=== PATIENT | female | born 1965 | race Caucasian/White ===

== ENCOUNTER 2024-07-11 17:33 | Observation (INO) ==
[2024-07-11 17:58] VITALS: BMI 14.5
--- NOTE | 2024-07-11 18:27 | EKG ---
Test Reason : Dyspnea Blood Pressure : */* mmHG Vent. Rate : 93 BPM Atrial Rate : 93 BPM P-R Int : 110 ms QRS Dur : 72 ms QT Int : 344 ms P-R-T Axes : 83 67 56 degrees QTc Int : 427 ms Sinus rhythm with short CA with occasional premature ventricular complexes Cannot rule out Anterior infarct , age undetermined Abnormal ECG No previous ECGs available Confirmed by Aiden Antoine MD ([id number]) on 07/12/2024 7:31:23 AM Referred By: Confirmed By: Aiden Antoine MD
[2024-07-11 18:40] LABS: BASOPHILS # (AUTO) 0.1 X10^3/uL (0.0-0.1); BASOPHILS % (AUTO) 0.5 % (0.2-1.0); EOSINOPHILS # (AUTO) 0.1 x10^3/uL (0.0-0.2); EOSINOPHILS % (AUTO) 0.5 % (0.9-2.9); HEMATOCRIT 39.2 % (36.0-47.0); HEMOGLOBIN 12.7 g/dL (12.0-16.0); INR 1.08 (0.8-1.3); LYMPHOCYTES # (AUTO) 1.1 X10^3/uL (1.3-2.9); LYMPHOCYTES % (AUTO) 7.3 % (21.0-51.0); MEAN CORPUSCULAR HEMOGLOBIN 27.1 pg (27.0-34.0); MEAN CORPUSCULAR HGB CONC 32.4 g/dL (33.0-35.0); MEAN CORPUSCULAR VOLUME 83.6 fL (80.0-100.0); MEAN PLATELET VOLUME 9.3 fL (7.4-11.0); MONOCYTES # (AUTO) 0.9 x10^3/uL (0.3-0.8); MONOCYTES % (AUTO) 6.1 % (0.0-13.0); NEUTROPHILS # (AUTO) 12.5 x10^3/uL (2.2-4.8); NEUTROPHILS % (AUTO) 85.6 % (42.0-75.0); PLATELET COUNT 217 X10^3/uL (150.0-450.0); RED BLOOD COUNT 4.69 X10^6/uL (3.5-5.4); RED CELL DISTRIBUTION WIDTH 14.4 % (11.6-16.5); WHITE BLOOD COUNT 14.6 X10^3/uL (3.6-10.0)
[2024-07-11 18:47] LABS: ALANINE AMINOTRANSFERASE 15 Units/L (12-78); ALKALINE PHOSPHATASE 146 Units/L (46-116); ASPARTATE AMINO TRANSFERASE 26 Units/L (15-37); BLOOD UREA NITROGEN 12 mg/dL (7-18); CALCIUM 9.1 mg/dL (8.5-10.1); CARBON DIOXIDE 31.8 mmol/L (21-32); CHLORIDE 95 mmol/L (98-107); COR CA(FOR HYPOALB) 9.9 mg/dL (8.5-10.1); COR NA(FOR HYPERGLY) 134 mmol/L (136-145); CREATINE KINASE 59 Units/L (26-192); GLUCOSE 122 mg/dL (65-99); MAGNESIUM 1.9 mg/dL (2.0-2.9); POTASSIUM 3.8 mmol/L (3.5-5.1); SODIUM 133 mmol/L (136-145); TOTAL PROTEIN 7.8 g/dL (6.4-8.2); eGFR NON BLACK RACES > 60 (>60)
--- NOTE | 2024-07-11 19:33 | CT ---
EXAM:CTA, CHESTHISTORY:SOB / CHEST PAIN ;COMPARISON:Chest radiograph from July 11, [address] chest from April 05, 2024TECHNIQUE:Axial CT images of the chest were obtained after the administration of 75 mL Omnipaque 350 IV contrast utilizing a CTA protocol. 3D MIPS were performed and reviewed for further evaluation.Radiation dose: 85.63 mGy-cm total DLPFINDINGS:No significant pericardial effusion.Right chest port in place.No mediastinal or hilar lymphadenopathy.Aorta is normal in caliber without dissection.Pulmonary arteries are normal in caliber without filling defects to suggest a pulmonary embolus.Airways are widely patent.Thyroid appears normal.No pleural effusion.No acute focal infiltrate.Scarring in the left lung base; as seen on the previous exam.Moderate centrilobular emphysema.Mild diffuse bronchial wall thickening.Small centrilobular nodules visualized in the medial segment of the middle lobe, lateral segment of the right lower lobe and in the anterior segment of the left upper lobe.No pneumothorax.No concerning lung parenchymal lesion identified.Small calcified gallstones in the dependent portion of the gallbladder with no overt imaging findings of acute cholecystitis.Otherwise, the imaged portion of the upper abdomen is grossly unremarkable.No acute osseous abnormality.IMPRESSION:1. No acute intrathoracic abnormality, specifically, no pulmonary embolus identified.2. Small centrilobular nodules visualized in the medial segment of the middle lobe, lateral segment of the right lower lobe and in the anterior segment of the left upper lobe. Findings could represent an atypical infectious process such as MAC.3. Moderate centrilobular emphysema.THIS IS AN ELECTRONICALLY VERIFIED FINAL REPORT07/11/2024 7:30 PM - Electronically signed by Gareth Sheikh MD
--- NOTE | 2024-07-11 20:26 | DR.GENAD ---
HPI Time Seen Time Seen by Provider: 07/11/24 18:00 PCP Primary Care Physician: Bennett Maza HPI Comment HPI Comment: According to pt she was well before 2 days ago stared with fever cough that has become productive and greenish yellow became concerned . Furthermore noticed increased shortness of breath ,but has no orthopnea PND or swelling around her ankles. Does have hx of COPD and stage 4 lung cancer. Does not use oxygen at home has also noticed malodorous urine .Appetite has been poor Complaint/Symptoms Chief Complaint Doctors Comments: shortness of breath foul smelling urine Chief Complaint:: Pt states for the last week she's been coughing up green mucus. Friday pt started having trouble catching her breath and her temperature was 100.3. Pt c/o foul-smelling urine and left flank pain that is moderate to severe. Denies n/v, diarrhea. Pt admits COPD and Stage 4 Lung CA. Self Treatment fo Chief Complaint: Tylenol COVID-19 Coronavirus risk:travel/contact w/high risk person: No Has patient experienced Coronavirus symptoms: Yes Coronavirus symptoms experienced: Coughing and Shortness of Breath Nurses notes reviewed Nurses Notes Review: Yes Source History Provided: Patient Mode of Arrival Mode of Arrival: Ambulatory Timing Onset of Chief Complaint: 07/04/24 Came on: Gradually Duration Duration: Since Onset Duration: Days Severity Severity: Moderate PMH PMH Past Medical History: Yes Past Medical History: Hypothyroidism and Cancer Past Medical History Comment: Lung CA Past Surgical History: Yes Surgical History: Hysterectomy and Other Past Surgical History Comment: Cataracts Family History History of Family Medical Conditions: Yes Family Medical History: Hypertension Social History How many years tobacco product used: 30 Alcohol Use: None Do you use any recreational Drugs:: No Lives With: Alone Lives Where: Home Travel Risk Coronavirus risk:travel/contact w/high risk person: No Has patient experienced Coronavirus symptoms: Yes Coronavirus symptoms experienced: Coughing and Shortness of Breath Infectious screening Have you traveled outside the country in the last 6 months?: No Isolation: Standard ROS Review of Systems Constitutional: Chills and Fatigue Eyes: No Symptoms Reported ENTM: No Symptoms Reported Respiratoy: Productive Cough and Short of Breath Cardiovascular: No Symptoms Reported Gastrointestinal/Abdominal: No Symptoms Reported Genitourinary: No Symptoms Reported Neurological: No Symptoms Reported Musculoskeletal: No Symptoms Reported Integumentary: No Symptoms Reported Hematologic/Lymphatic: No Symptoms Reported PE Vital Signs Vitals: Vital Signs Temperature 98.6 F Pulse Rate 94 Pulse Rate 98 Pulse Rate 99 Pulse Rate 99 Pulse Rate 97 Pulse Rate 93 Pulse Rate 92 Pulse Rate 90 Pulse Rate 93 Pulse Rate 92 Pulse Rate 84 Pulse Rate 98 Pulse Rate 91 Pulse Rate 103 Pulse Rate 87 Pulse Rate 83 Pulse Rate 89 Pulse Rate 105 Pulse Rate 87 Pulse Rate 87 Pulse Rate 93 Pulse Rate 98 Pulse Rate 112 Pulse Rate 109 Respiratory Rate 30 Respiratory Rate 23 Respiratory Rate 17 Respiratory Rate 34 Respiratory Rate 19 Respiratory Rate 19 Respiratory Rate 24 Respiratory Rate 20 Respiratory Rate 20 Respiratory Rate 17 Respiratory Rate 16 Respiratory Rate 20 Respiratory Rate 20 Respiratory Rate 21 Respiratory Rate 20 Respiratory Rate 19 Respiratory Rate 24 Blood Pressure 115/63 Blood Pressure 113/57 Blood Pressure 121/64 Blood Pressure 107/64 Blood Pressure 116/66 Blood Pressure 112/63 Blood Pressure 119/67 Blood Pressure 127/64 O2 Sat by Pulse Oximetry 97 O2 Sat by Pulse Oximetry 97 O2 Sat by Pulse Oximetry 98 O2 Sat by Pulse Oximetry 99 O2 Sat by Pulse Oximetry 97 O2 Sat by Pulse Oximetry 99 O2 Sat by Pulse Oximetry 98 O2 Sat by Pulse Oximetry 99 O2 Sat by Pulse Oximetry 98 O2 Sat by Pulse Oximetry 98 O2 Sat by Pulse Oximetry 100 O2 Sat by Pulse Oximetry 98 O2 Sat by Pulse Oximetry 100 O2 Sat by Pulse Oximetry 100 O2 Sat by Pulse Oximetry 100 O2 Sat by Pulse Oximetry 100 O2 Sat by Pulse Oximetry 100 O2 Sat by Pulse Oximetry 85 O2 Sat by Pulse Oximetry 100 O2 Sat by Pulse Oximetry 99 O2 Sat by Pulse Oximetry 98 O2 Sat by Pulse Oximetry 99 O2 Sat by Pulse Oximetry 86 O2 Sat by Pulse Oximetry 84 General Limitations: No Limitations General Appearance: Alert and In Distress Head Head Exam: Normal Inspection, Atraumatic and Normocephalic Eyes Eye exam: Normal Appearance, PERRL and EOMI ENT ENT Exam: Mucous Membranes Dry Throat Exam: Normal Inspection Neck Neck Exam: Normal Inspection Chest Chest Inspection: Normal Inspection and Symmetric Chest Wall Rise Respiratory Respiratory Exam: Prolonged Expiratory Phase Respiratory Exam: Bilateral: Crackles Cardiovascular Cardiovascular Exam: +S1 and +S2 Abdominal Exam Abdominal Exam: Normal Bowel Sounds and Soft Extremities Extremities Exam: Normal Inspection Neurologic Neurological Exam: Alert Skin Skin Exam: Normal Color MDM Additional Information Findings: dehydration Differential Diagnosis Differential Diagnosis: copd acute exacerbation ,hx of stage 4 ,? pulmonary embolism ,malodorous ur COURSE Treatment Treatment: iv fluids ,labs ,steroid ,oxygen resp panel ROR Labs Reviewed Laboratory Results Reviewed?: Yes 07/11/24 18:22 07/11/24 18:22 Laboratory: WBC 14.6 X10^3/uL (3.6-10.0) H 07/11/24 18:22 RBC 4.69 X10^6/uL (3.5-5.4) 07/11/24 18:22 Hgb 12.7 g/dL (12.0-16.0) 07/11/24 18:22 Hct 39.2 % (36.0-47.0) 07/11/24 18:22 MCV 83.6 fL (80.0-100.0) 07/11/24 18:22 MCH 27.1 pg (27.0-34.0) 07/11/24 18:22 MCHC 32.4 g/dL (33.0-35.0) L 07/11/24 18:22 RDW 14.4 % (11.6-16.5) 07/11/24 18:22 Plt Count 217 X10^3/uL (150.0-450.0) 07/11/24 18:22 MPV 9.3 fL (7.4-11.0) 07/11/24 18:22 Neut % (Auto) 85.6 % (42.0-75.0) H 07/11/24 18:22 Lymph % (Auto) 7.3 % (21.0-51.0) L 07/11/24 18:22 [place] % (Auto) 6.1 % (0.0-13.0) 07/11/24 18:22 Eos % (Auto) 0.5 % (0.9-2.9) L 07/11/24 18:22 Baso % (Auto) 0.5 % (0.2-1.0) 07/11/24 18:22 Neut # (Auto) 12.5 x10^3/uL (2.2-4.8) H 07/11/24 18:22 Lymph # (Auto) 1.1 X10^3/uL (1.3-2.9) L 07/11/24 18:22 [place] # (Auto) 0.9 x10^3/uL (0.3-0.8) H 07/11/24 18:22 Eos # (Auto) 0.1 x10^3/uL (0.0-0.2) 07/11/24 18:22 Baso # (Auto) 0.1 X10^3/uL (0.0-0.1) 07/11/24 18:22 Absolute Nucleated RBC 0.0 /100WBC 07/11/24 18:22 PT 13.8 SECONDS (11.8-14.3) 07/11/24 18:22 INR Target Range - 07/11/24 18:22 INR 1.08 (0.8-1.3) 07/11/24 18:22 APTT 54.8 SECONDS (22.9-36.5) H 07/11/24 18:22 PTT Comment - 07/11/24 18:22 Sodium 133 mmol/L (136-145) L 07/11/24 18:22 Corrected Sodium 134 mmol/L (136-145) L 07/11/24 18:22 Potassium 3.8 mmol/L (3.5-5.1) 07/11/24 18:22 Chloride 95 mmol/L (98-107) L 07/11/24 18:22 Carbon Dioxide 31.8 mmol/L (21-32) 07/11/24 18:22 BUN 12 mg/dL (7-18) 07/11/24 18:22 Creatinine 0.70 mg/dL (0.55-1.02) 07/11/24 18:22 Est GFR (MDRD) Af Amer > 60 (>60) 07/11/24 18:22 Est GFR (MDRD) Non-Af > 60 (>60) 07/11/24 18:22 Glucose 122 mg/dL (65-99) H 07/11/24 18:22 Calcium 9.1 mg/dL (8.5-10.1) 07/11/24 18:22 Corrected Calcium 9.9 mg/dL (8.5-10.1) 07/11/24 18:22 Magnesium 1.9 mg/dL (2.0-2.9) L 07/11/24 18:22 Total Bilirubin 0.30 mg/dL (0.2-1.0) 07/11/24 18:22 AST 26 Units/L (15-37) 07/11/24 18:22 ALT 15 Units/L (12-78) 07/11/24 18:22 Alkaline Phosphatase 146 Units/L (46-116) H 07/11/24 18:22 Creatine Kinase 59 Units/L (26-192) 07/11/24 18:22 Troponin I High Sens 6.2 ng/L (4.0-60.0) 07/11/24 18:22 B-Natriuretic Peptide 158 pg/mL (0-79) H 07/11/24 18:22 Total Protein 7.8 g/dL (6.4-8.2) 07/11/24 18:22 Albumin 3.0 g/dL (3.4-5.0) L 07/11/24 18:22 Globulin 4.8 g/dL (2.5-4.5) H 07/11/24 18:22 Albumin/Globulin Ratio 0.6 Ratio (1.1-2.1) L 07/11/24 18:22 SARS-CoV-2 (PCR) Negative (NEGATIVE) 07/11/24 18:00 Influenza Type A (PCR) Negative (NEGATIVE) 07/11/24 18:00 Influenza Type B (PCR) Negative (NEGATIVE) 07/11/24 18:00 RSV (PCR) Negative (NEGATIVE) 07/11/24 18:00 Opioid Opioid Risk Tool Age ([place] box if 16-45): No History of Preadolescent Sexual Abuse: No Total: 0 Total Score Risk Category: Low Risk Copyright: Alvarado predicting aberrant behaviors Discharge Plan Diagnosis Discharge Problem: Acute exacerbation of chronic obstructive pulmonary disease, Acute bacterial bronchitis, Hypoxia Discharge Plan Patient Disposition: 01 HOME, SELF-CARE Condition: Stable Prescriptions: No Action albuterol sulfate 2.5 mg /3 mL (0.083 %) solution for nebulization 235 mg continuous nebulization Q4H PRN Patient Comments: [NO ORIGINAL SIG] potassium chloride 10 mEq tablet extended release 10 meq PO QDAY levothyroxine 50 mcg tablet 50 mcg PO QDAY furosemide 20 mg tablet 20 mg PO QDAY albuterol sulfate 90 mcg/actuation HFA aerosol inhaler 2 inh inhalation Q4H PRN levocetirizine 5 mg tablet 5 mg PO QDAY oxycodone 20 mg tablet 20 mg PO QID PRN Breztri Aerosphere 160-9-4.8 mcg/actuation HFA aerosol inhaler 2 inh inhalation BID Health Concerns: Post Hospitalization: new medications and changes needed to prevent readmission or further decline. Pt educated and given instructions on all concerns. Plan of Treatment: Continue with present treatment and follow up plan. Pt is to keep follow up appointment as instructed and take medications as ordered. Orders to Discharge Patient Discharge Orders: Transfer (Routine); Ordered 07/11/24 Ordered By: Royal Santana Follow ups/Referrals Follow ups/Referrals: NFD,None [Primary Care Provider] - 3 days Instructions Stand Alone Forms: Find Help Web Site, Post Hospital Follow Up Care ADDITIONAL NOTES Additional Notes Additional Notes: her oxygen dropped to lower 80`s with ambulation . discussed case with Dr Flores agreed to have patient admitted for hypoxia with COPD exacerbation .May need home oxygen scheduled prior to discharge
[2024-07-11] MEDS: NS 500 ML IV 500 ML IV ONE (20:28)
[2024-07-11] MEDS: SOLU-Medrol 125 MG VIAL IVP ONE (20:30)
[2024-07-11] MEDS: LEVAQUIN TAB 750 MG PO ONE (20:51)
--- NOTE | 2024-07-11 20:53 | RAD ---
PROCEDURE: Chest X-ray 1 View.HISTORY: SOB; .TECHNIQUE: AP view.COMPARISON: None .TECHNICAL QUALITY: Satisfactory.FINDINGS:Micro cardia related to emphysema.Right internal jugular Port-A-Cath in place.Mediastinum and hilar regions show no masses or lymphadenopathy.Normal central vascularity.No pulmonary consolidation, masses, pleural fluid, or pneumothorax. Hyperexpansion of the lungs related to emphysema. Linear scar versus discoid atelectasis right base.No acute bony abnormality.IMPRESSION:1. COPD.2. Scar versus atelectasis right base.THIS IS AN ELECTRONICALLY VERIFIED FINAL REPORT07/11/2024 8:50 PM - Electronically signed by Perez Fleming MD
[2024-07-11] MEDS ORDERED: PROVENTIL NEB TX 0.083% 2.5MG/ 3ML NEB PRN (23:06)
[2024-07-11] MEDS ORDERED: PATIENT'S HOME MEDICATION (Oxycodone 20 mg tablet) PO PRN (23:06)
[2024-07-11] MEDS ORDERED: MILK OF MAGNESIA PO PRN (23:46)
[2024-07-11] MEDS: PROVENTIL NEB TX 0.083% 2.5MG/ 3ML NEB SCH (23:47)
[2024-07-12 00:05] LABS: ABG BASE EXCESS 4.1 mmol/L (-2.0-2.0); ABG HCO3 28.5 mmol/L (22-26)
[2024-07-12 00:06] LABS: ABG ALLEN TEST POS
[2024-07-12] MEDS: TYLENOL 325 MG TAB PO PRN (00:52)
[2024-07-12] MEDS: SOLU-Medrol 40 MG VIAL IVP SCH (05:02)
[2024-07-12] MEDS: ROXICODONE TAB 5 MG PO PRN (05:06)
[2024-07-12 05:38] LABS: BASOPHILS % (AUTO) 0.1 % (0.2-1.0); HEMATOCRIT 43.2 % (36.0-47.0); HEMOGLOBIN 13.8 g/dL (12.0-16.0); LYMPHOCYTES # (AUTO) 0.6 X10^3/uL (1.3-2.9); MEAN CORPUSCULAR VOLUME 84.4 fL (80.0-100.0); MEAN PLATELET VOLUME 9.2 fL (7.4-11.0); MONOCYTES # (AUTO) 0.1 x10^3/uL (0.3-0.8); NEUTROPHILS # (AUTO) 10.7 x10^3/uL (2.2-4.8); NEUTROPHILS % (AUTO) 93.9 % (42.0-75.0); PLATELET COUNT 241 X10^3/uL (150.0-450.0); RED BLOOD COUNT 5.12 X10^6/uL (3.5-5.4); RED CELL DISTRIBUTION WIDTH 14.7 % (11.6-16.5); WHITE BLOOD COUNT 11.4 X10^3/uL (3.6-10.0)
[2024-07-12 05:42] LABS: ALANINE AMINOTRANSFERASE 15 Units/L (12-78); ALKALINE PHOSPHATASE 153 Units/L (46-116); ASPARTATE AMINO TRANSFERASE 23 Units/L (15-37); BLOOD UREA NITROGEN 9 mg/dL (7-18); CALCIUM 9.3 mg/dL (8.5-10.1); CARBON DIOXIDE 30.4 mmol/L (21-32); CHLORIDE 95 mmol/L (98-107); COR CA(FOR HYPOALB) 10.1 mg/dL (8.5-10.1); COR NA(FOR HYPERGLY) 134 mmol/L (136-145); CREATININE 0.54 mg/dL (0.55-1.02); GLUCOSE 113 mg/dL (65-99); POTASSIUM 4.2 mmol/L (3.5-5.1); SODIUM 134 mmol/L (136-145); TOTAL PROTEIN 8.2 g/dL (6.4-8.2); eGFR NON BLACK RACES > 60 (>60)
[2024-07-12 06:03] LABS: BAND NEUTROPHILS % 1 % (0-10); PLATELET MORPHOLOGY COMMENT NORMAL (NORMAL)
[2024-07-12] MEDS: PROVENTIL NEB TX 0.083% 2.5MG/ 3ML ONE (07:36)
[2024-07-12] MEDS: SYNTHROID 50 mcg TAB PO SCH (08:39)
[2024-07-12] MEDS ORDERED: PATIENT'S HOME MEDICATION (Budesonide-Glycopyr-Formoterol [Breztri Aerosphere] 160-9-4.8 m IN SCH (09:00)
[2024-07-12] MEDS: PULMICORT NEB TX 0.5 MG NEB SCH (09:06)
--- NOTE | 2024-07-12 14:20 | CT ---
EXAM: THORACIC SPINE W/O CON HISTORY: BACK PAIN ; COMPARISON: Chest CT 07/11/2024 TECHNIQUE: Multiple CT axial images of the thoracicspine were obtained without IV contrast. Coronal and sagittal images were reconstructed. Dose reduction techniques included Automated Exposure Control (AEC) and a djustment of mA and kV. FINDINGS: There is no significant scoliosis. Moderate senescent kyphosis is present. Twelve ribbed thoracic t ype vertebra are present. There are no cervical ribs. The bones are diffusely demineralized. The heights of the vertebral bodies are normal. No subluxation. Left posterior 10th rib fracture is old. No acute fracture. Very mild degenerative spondylitic changes are present in the spine. Intracanalicular soft tissue delineation is fair. There is no obvious disc herniation. Normal opacity is present in the left lung; refer to the chest CT report from yesterday. IMPRESSION: 1. No acute findings 2. Mild degenerative changes THIS IS AN ELECTRONICALLY VERIFIED FINAL REPORT 07/12/2024 2:16 PM - Electronically signed by Lee Carlisle MD
--- NOTE | 2024-07-12 14:25 | RAD ---
EXAM: ACUTE ABDOMEN SERI ES HISTORY: Left flank back pain; COMPARISON: No relevant prior studies available. TECHNIQUE: AP supine and upright abdominal radiographs with chest radiography, 3 images. FINDINGS: Gas and stool in non distended colon. Gas in scattered loops of non-distended small bowel. No gross free air. No abnormal calcifications. Lungs are clear of focal airspace disease. Diaphragmatic flattening noted. Right-sided implanted po rt with tip in satisfactory position No cardiomegaly. No pneumothorax. No pleural effusion. No acute osseous abnormality. IMPRESSION: No acute intra-abdominal or intrathoracic abnormality detected. Right port in satisfactory position Stigmata of COPD THIS IS AN ELECTRONICALLY VERIFIED FINAL REPORT 07/12/2024 2:22 PM - Electronically signed by Perez Chamorro MD
--- NOTE | 2024-07-12 18:04 | DR.H&P ---
H&P History & Physical for Day of: H&P Date: 07/11/24 Chief Complaint Chief Complaint: CCC, WEAKNESS History of Present Illness History of Present Illness: PT IS 59 WF, ER ADMISSION WITH CO DIFFUSE WEAKNESS, CCC AND INCREASED PRODUCTIVE SPUTUM. PT HAS STAGE IV LUNG CANCER, CURRENTLY ON CHEMO. PT DENIES ANY GI SYMPTOMS. PT ADMITTED FOR EVALUATION AND TREATMENT OF ACUTE ILLNESS. Past Medical History Past Medical History: Hypothyroidism and Cancer Past Surgical History Surgical History: Hysterectomy Family History Family Medical History: Hypertension Social History Does patient currently use any type of tobacco product: Yes Type of Tobacco Use: Cigarettes How many years tobacco product used: 30 Does any household member use tobacco: No Alcohol Use: None Drug Use: None Medications Home Medications: Home Medications Medication Instructions Recorded Confirmed Type albuterol sulfate 2.5 mg/3 mL 235 mg continuous nebulization Q4H 07/11/24 07/11/24 History (0.083 %) solution for nebulization PRN albuterol sulfate 90 mcg/actuation 2 inh inhalation Q4H PRN 07/11/24 07/11/24 History aerosol inhaler budesonide 160 mcg-glycopyr 9 2 inh inhalation BID 07/11/24 07/11/24 History mcg-formot 4.8 mcg/actuation HFA inhaler (Breztri Aerosphere) furosemide 20 mg tablet 20 mg PO QDAY 07/11/24 07/11/24 History levocetirizine 5 mg tablet 5 mg PO QDAY 07/11/24 07/11/24 History levothyroxine 50 mcg tablet 50 mcg PO QDAY 07/11/24 07/11/24 History oxycodone 20 mg tablet 20 mg PO QID PRN 07/11/24 07/11/24 History potassium chloride 10 mEq 10 meq PO QDAY 07/11/24 07/11/24 History tablet,extended release Allergies Allergies Allergy/AdvReac Type Severity Reaction Status Date / Time No Known Allergies Allergy Verified 07/11/24 19:24 Labs 07/12/24 05:16 07/12/24 05:16 Labs: 07/12/24 01:53 Sputum - Expectorated Sputum - Final Laboratory WBC 11.4 X10^3/uL (3.6-10.0) H 07/12/24 05:16 RBC 5.12 X10^6/uL (3.5-5.4) 07/12/24 05:16 Hgb 13.8 g/dL (12.0-16.0) 07/12/24 05:16 Hct 43.2 % (36.0-47.0) 07/12/24 05:16 MCV 84.4 fL (80.0-100.0) 07/12/24 05:16 MCH 27.0 pg (27.0-34.0) 07/12/24 05:16 MCHC 32.0 g/dL (33.0-35.0) L 07/12/24 05:16 RDW 14.7 % (11.6-16.5) 07/12/24 05:16 Plt Count 241 X10^3/uL (150.0-450.0) 07/12/24 05:16 Plt Count Comment Adequate (ADEQUATE) 07/12/24 05:16 MPV 9.2 fL (7.4-11.0) 07/12/24 05:16 Neut % (Auto) 93.9 % (42.0-75.0) H 07/12/24 05:16 Lymph % (Auto) 5.0 % (21.0-51.0) L 07/12/24 05:16 [place] % (Auto) 1.0 % (0.0-13.0) 07/12/24 05:16 Eos % (Auto) 0.0 % (0.9-2.9) L 07/12/24 05:16 Baso % (Auto) 0.1 % (0.2-1.0) L 07/12/24 05:16 Neut # (Auto) 10.7 x10^3/uL (2.2-4.8) H 07/12/24 05:16 Lymph # (Auto) 0.6 X10^3/uL (1.3-2.9) L 07/12/24 05:16 [place] # (Auto) 0.1 x10^3/uL (0.3-0.8) L 07/12/24 05:16 Eos # (Auto) 0.0 x10^3/uL (0.0-0.2) 07/12/24 05:16 Baso # (Auto) 0.0 X10^3/uL (0.0-0.1) 07/12/24 05:16 Absolute Nucleated RBC 0.0 /100WBC 07/12/24 05:16 Total Counted 100 07/12/24 05:16 Neutrophils % (Manual) 93 % (39-76) H 07/12/24 05:16 Band Neutrophils % 1 % (0-10) 07/12/24 05:16 Lymphocytes % (Manual) 5 % (13-43) L 07/12/24 05:16 Monocytes % (Manual) 1 % (4-9) L 07/12/24 05:16 Plt Morphology Comment Normal (NORMAL) 07/12/24 05:16 RBC Morphology Normal (NORMAL) 07/12/24 05:16 PT 13.8 SECONDS (11.8-14.3) 07/11/24 18:22 INR Target Range - 07/11/24 18:22 INR 1.08 (0.8-1.3) 07/11/24 18:22 APTT 54.8 SECONDS (22.9-36.5) H 07/11/24 18:22 PTT Comment - 07/11/24 18:22 Sample Site Lr 07/11/24 23:36 ABG pH 7.450 (7.35-7.45) 07/11/24 23:36 ABG pCO2 41.0 mmHg (35.0-45.0) 07/11/24 23:36 ABG pO2 71.0 mmHg (80.0-100.0) L 07/11/24 23:36 ABG HCO3 28.5 mmol/L (22-26) H 07/11/24 23:36 ABG O2 Saturation 95.0 % (90-100) 07/11/24 23:36 ABG Base Excess 4.1 mmol/L (-2.0-2.0) H 07/11/24 23:36 Lj Test Pos 07/11/24 23:36 A-a Gradient 77.0 mmHg 07/11/24 23:36 FiO2 28 07/11/24 23:36 Blood Gas Comments Malini well 07/11/24 23:36 Sodium 134 mmol/L (136-145) L 07/12/24 05:16 Corrected Sodium 134 mmol/L (136-145) L 07/12/24 05:16 Potassium 4.2 mmol/L (3.5-5.1) 07/12/24 05:16 Chloride 95 mmol/L (98-107) L 07/12/24 05:16 Carbon Dioxide 30.4 mmol/L (21-32) 07/12/24 05:16 BUN 9 mg/dL (7-18) 07/12/24 05:16 Creatinine 0.54 mg/dL (0.55-1.02) L 07/12/24 05:16 Est GFR (MDRD) Af Amer > 60 (>60) 07/12/24 05:16 Est GFR (MDRD) Non-Af > 60 (>60) 07/12/24 05:16 Glucose 113 mg/dL (65-99) H 07/12/24 05:16 Calcium 9.3 mg/dL (8.5-10.1) 07/12/24 05:16 Corrected Calcium 10.1 mg/dL (8.5-10.1) 07/12/24 05:16 Magnesium 2.0 mg/dL (2.0-2.9) 07/12/24 05:16 Total Bilirubin 0.50 mg/dL (0.2-1.0) 07/12/24 05:16 AST 23 Units/L (15-37) 07/12/24 05:16 ALT 15 Units/L (12-78) 07/12/24 05:16 Alkaline Phosphatase 153 Units/L (46-116) H 07/12/24 05:16 Creatine Kinase 59 Units/L (26-192) 07/11/24 18:22 Troponin I High Sens 6.2 ng/L (4.0-60.0) 07/11/24 18:22 B-Natriuretic Peptide 158 pg/mL (0-79) H 07/11/24 18:22 Total Protein 8.2 g/dL (6.4-8.2) 07/12/24 05:16 Albumin 3.0 g/dL (3.4-5.0) L 07/12/24 05:16 Globulin 5.2 g/dL (2.5-4.5) H 07/12/24 05:16 Albumin/Globulin Ratio 0.6 Ratio (1.1-2.1) L 07/12/24 05:16 SARS-CoV-2 (PCR) Negative (NEGATIVE) 07/11/24 18:00 Influenza Type A (PCR) Negative (NEGATIVE) 07/11/24 18:00 Influenza Type B (PCR) Negative (NEGATIVE) 07/11/24 18:00 RSV (PCR) Negative (NEGATIVE) 07/11/24 18:00 Review of Systems Constitutional: No Symptoms Reported Eyes: No Symptoms Reported ENT: No Symptoms Reported Respiratory: Cough, Shortness of Breath, SOB with Excertion and Sputum Cardiovascular: No Symptoms Reported Gastrointestinal: No Symptoms Reported Genitourinary: Dysuria Musculoskeletal: Back Pain Skin: No Symptoms Reported Neurological: Weakness (MILD DIFFUSE) Physical Exam Vital Signs: Vital Signs Temperature 98.9 F Temperature 97.6 F Pulse Rate [Right Radial] 84 Pulse Rate [Right Radial] 95 Respiratory Rate 17 Respiratory Rate 20 Respiratory Rate 20 Respiratory Rate 18 Blood Pressure [Right Arm] 111/59 Blood Pressure [Right Arm] 105/56 O2 Sat by Pulse Oximetry 92 O2 Sat by Pulse Oximetry 91 Oriented: Normal Eyes: Normal Ear: Normal Nose: Normal Throat: Normal Respiratory: Wheezes Throughout, RLL Diminished and LLL Diminished Cardiovascular: Normal : Normal Auscultation: Bowel Sounds: Normal Palpation: Normal Tenderness: Normal Skin: Decreased Turgur Musculoskeletal: Back:Thoracic and Back:Lumbar Psychiatric: Anxiety Mood Description: Anxious Affect: Normal Speech Pattern: Clear and Appropriate Assessment/Plan (1) Acute exacerbation of chronic obstructive pulmonary disease: Status: Acute Plan: ADMIT, IV ATBX CXR ON ADMISSION, SUPPLEMENTAL O2 IV HYDRATION VERIFY HOME MEDICATIONS (2) Hypoxia: Status: Acute (3) Stage IV squamous cell carcinoma of lung: Status: Acute
[2024-07-12] MEDS: COLACE CAP 100 MG PO SCH (21:25)
[2024-07-12] MEDS: LEVAQUIN TAB 500 MG PO SCH (21:25)
[2024-07-13 05:52] VITALS: O2SAT 97
[2024-07-13 06:12] LABS: BASOPHILS % (AUTO) 0.3 % (0.2-1.0); HEMATOCRIT 37.6 % (36.0-47.0); HEMOGLOBIN 12.2 g/dL (12.0-16.0); LYMPHOCYTES # (AUTO) 0.5 X10^3/uL (1.3-2.9); LYMPHOCYTES % (AUTO) 3.2 % (21.0-51.0); MEAN CORPUSCULAR HEMOGLOBIN 26.8 pg (27.0-34.0); MEAN CORPUSCULAR HGB CONC 32.6 g/dL (33.0-35.0); MEAN CORPUSCULAR VOLUME 82.2 fL (80.0-100.0); MEAN PLATELET VOLUME 9.7 fL (7.4-11.0); MONOCYTES # (AUTO) 0.6 x10^3/uL (0.3-0.8); MONOCYTES % (AUTO) 4.3 % (0.0-13.0); NEUTROPHILS # (AUTO) 13.5 x10^3/uL (2.2-4.8); NEUTROPHILS % (AUTO) 92.2 % (42.0-75.0); PLATELET COUNT 207 X10^3/uL (150.0-450.0); RED BLOOD COUNT 4.57 X10^6/uL (3.5-5.4); RED CELL DISTRIBUTION WIDTH 14.4 % (11.6-16.5); WHITE BLOOD COUNT 14.7 X10^3/uL (3.6-10.0)
[2024-07-13 06:35] LABS: ALANINE AMINOTRANSFERASE 13 Units/L (12-78); ALBUMIN 2.6 g/dL (3.4-5.0); ALKALINE PHOSPHATASE 117 Units/L (46-116); ASPARTATE AMINO TRANSFERASE 20 Units/L (15-37); BLOOD UREA NITROGEN 23 mg/dL (7-18); CALCIUM 8.8 mg/dL (8.5-10.1); CARBON DIOXIDE 33.6 mmol/L (21-32); CHLORIDE 100 mmol/L (98-107); COR CA(FOR HYPOALB) 9.9 mg/dL (8.5-10.1); COR NA(FOR HYPERGLY) 137 mmol/L (136-145); CREATININE 0.43 mg/dL (0.55-1.02); GLUCOSE 117 mg/dL (65-99); POTASSIUM 4.3 mmol/L (3.5-5.1); SODIUM 137 mmol/L (136-145); TOTAL PROTEIN 6.7 g/dL (6.4-8.2); eGFR NON BLACK RACES > 60 (>60)
[2024-07-13 07:03] LABS: BAND NEUTROPHILS % 3 % (0-10)
[2024-07-13 07:04] LABS: PLATELET MORPHOLOGY COMMENT NORMAL (NORMAL)
[2024-07-13] MEDS: SOLU-Medrol 40 MG VIAL IVP SCH (11:51)
[2024-07-13 12:06] VITALS: BP 121/60; PULSE 83; TEMP 98.2
[2024-07-13 14:23] VITALS: RESP 21
== END 2024-07-13 15:50 | disposition home or self-care (01) ==
LOC: MED/SURG 17:33 → ER 17:33 → MED/SURG 23:27
PROVIDERS: ADMIT Internal Medicine; ATTEND Internal Medicine
DX: R09.02 Hypoxemia; E83.42 Hypomagnesemia; B96.3 Hemophilus influenzae [H. influenzae] as the cause of diseases classified elsewhere; B95.7 Other staphylococcus as the cause of diseases classified elsewhere; Z16.29 Resistance to other single specified antibiotic; R79.1 Abnormal coagulation profile; B95.61 Methicillin susceptible Staphylococcus aureus infection as the cause of diseases classified elsewhere; Z92.21 Personal history of antineoplastic chemotherapy; E87.1 Hypo-osmolality and hyponatremia; R06.02 Shortness of breath; Z72.0 Tobacco use; E03.8 Other specified hypothyroidism; B97.89 Other viral agents as the cause of diseases classified elsewhere; M54.59 Other low back pain; J44.1 Chronic obstructive pulmonary disease with (acute) exacerbation; C34.90 Malignant neoplasm of unspecified part of unspecified bronchus or lung; R94.31 Abnormal electrocardiogram [ECG] [EKG]; R26.81 Unsteadiness on feet; Z03.818 Encounter for observation for suspected exposure to other biological agents ruled out; M62.50 Muscle wasting and atrophy, not elsewhere classified, unspecified site